=== PATIENT | male | born 1950 | race Caucasian/White ===

== ENCOUNTER 2017-10-30 02:09 | Emergency (ER) | payer MEDICARE ==
[2017-10-30] MEDS ORDERED: solu-MEDROL 125 MG IV ONE (02:22)
[2017-10-30] MEDS ORDERED: Sodium Chloride 0.9% 1000 ML 1,000 ML IV STA (02:22)
[2017-10-30] MEDS ORDERED: DUONEB 0.5-3 MG/3 ml Neb IH ONE ×2 (02:22→02:29)
--- NOTE | 2017-10-30 02:29 | ERPHSYRPT ---
- History of Present Illness Time Seen by Provider: 10/30/17 02:25 Source: patient Physician History: 67-year-old white male arrives with complaint of shortness of breath cough productive of yellow sputum symptoms 2 days he has had no vomiting he has no chest pain he has not had a fever at home. Past medical history includes COPD emphysema asthma HIV, degenerative bone disease Past surgical history hernia repair Social history positive for tobacco use Timing/Duration: day(s) (3 days) Severity of Dyspnea-Max: moderate Severity of Dyspnea-Current: moderate Possible Cause: occasional episodes Associated Symptoms: constant, cough, wheezing, productive cough (yellow sputum) , No intermittent, No anxiety, No chest pain/discomfort, No edema, No fever, No insomnia, No loss of appetite, No lightheadedness, No weakness, No ankle swelling, No chills, No hemoptysis, No calf pain, No dizziness, No heaviness, No heart racing, No lightheadedness, No leg swelling, No muscle spasms feet, No muscle spasms hands, No painful breathing, No sweating, No tightness, No tingling face, No tingling hands International travel in last 2 weeks: No Allergies/Adverse Reactions: morphine Allergy (Verified 10/30/17 02:50) vancomycin Allergy (Verified 10/30/17 02:50) - Review of Systems Constitutional: No Fever, No Chills Eyes: No Symptoms Ears, Nose, & Throat: No Symptoms Respiratory: Cough, Dyspnea, Wheezing Cardiac: No Chest Pain, No Edema, No Syncope Abdominal/Gastrointestinal: No Abdominal Pain, No Nausea, No Vomiting, No Diarrhea Genitourinary Symptoms: No Dysuria Musculoskeletal: No Back Pain, No Neck Pain Skin: No Rash Neurological: No Dizziness, No Focal Weakness, No Sensory Changes Psychological: No Symptoms Endocrine: No Symptoms All Other Systems: Reviewed and Negative - Past Medical History Pertinent Past Medical History: Yes Cardiac History: No Pertinent History Respiratory History: Asthma, Bronchitis, COPD Musculoskeletal History: Other (degenerative bone disease) Other Medical History: HIV - Past Surgical History Past Surgical History: Yes Gastrointestinal: Hernia Repair - Nursing Vital Signs Nursing Vital Signs: Initial Vital Signs Temperature 99.7 F 10/30/17 02:14 Pulse Rate 79 10/30/17 02:14 Blood Pressure 157/92 10/30/17 02:14 O2 Sat by Pulse Oximetry 92 L 10/30/17 02:14 Pain Scale Pain Intensity 0 - Physical Exam General Appearance: mild distress Eye Exam: PERRL/EOMI Ears, Nose, Throat Exam: hearing grossly normal, normal ENT inspection, normal pharynx, No abnormal TM (R), No abnormal TM (L), No sinus pain/drainage, No hearing decreased, No nasal congestion, No pharyngeal erythema, No tonsillar exudate, No tonsillar swelling Neck Exam: normal inspection, non-tender, supple, full range of motion Respiratory Exam: diminished breath sounds, wheezing Cardiovascular/Chest Exam: normal heart sounds, regular rate/rhythm Abdominal/Gastrointestinal Exam: soft, No tenderness, No distention, No mass Extremity Exam: non-tender, normal range of motion, normal inspection, no calf tenderness, no pedal edema Peripheral Pulses Exam: dorsalis-pedis (R): 2+, dorsalis-pedis (L): 2+ Neurologic Exam: alert, oriented x 3, cooperative, precision instrument and tool maker II-XII nml as tested, sensation nml, No motor deficits Skin Exam: normal color, warm, No dry SpO2 Interpretation: normal (92%) - Course Nursing assessment & vital signs reviewed: Yes EKG Interpreted by Me: RATE (79 bpm), Sinus Rhythm, Other (EKG: Sinus rhythm 79 bpm moderate amount of artifact normal axis no acute ST or T wave changes noted) - Radiology Exams Chest X-ray Interpretation: Interpreted by me, Other (Emphasematous chest, no infiltrates, no pneumothorax) Ordered Tests: Active Orders 24 hr Category Date Time Status Page Makeup System Operator STAT Care 10/30/17 02:23 Active EKG-ER Only STAT Care 10/30/17 02:22 Active IV Insertion STAT Care 10/30/17 02:22 Active Pulse Oximetry (ED) STAT Care 10/30/17 02:22 Active CHEST 1 VIEW (PORTABLE) Stat Exams 10/30/17 02:23 Taken BLOOD CULTURE Stat Lab 10/30/17 02:30 Received CBC W DIFF Stat Lab 10/30/17 02:25 Completed CMP Stat Lab 10/30/17 02:25 Completed CULTURE,SPUTUM Stat Lab 10/30/17 03:15 Received Lactic Acid Stat Lab 10/30/17 02:29 Completed NT PRO BNP Stat Lab 10/30/17 02:25 Completed TROPONIN Q3H Lab 10/30/17 02:25 Completed TROPONIN Q3H Lab 10/30/17 05:30 Ordered TROPONIN Q3H Lab 10/30/17 08:30 Ordered TROPONIN Q3H Lab 10/30/17 11:30 Ordered TROPONIN Q3H Lab 10/30/17 14:30 Ordered VENOUS BLOOD GAS Stat Lab 10/30/17 02:29 Completed Respiratory Nebulizer STAT RT 10/30/17 02:25 Completed Respiratory Nebulizer STAT RT 10/30/17 03:21 Completed Medication Summary Discontinued Medications Generic Name Dose Route Start Last Admin Trade Name Stephen PRN Reason Stop Dose Admin Albuterol Sulfate 2.5 mg 10/30/17 03:20 10/30/17 03:40 Proventil 2.5 Mg/3 Ml Neb IH 10/30/17 03:21 2.5 mg STAT ONE Administration Albuterol Sulfate Confirm 10/30/17 03:39 Proventil 2.5 Mg/3 Ml Neb Administered 10/30/17 03:40 Dose 2.5 mg IH .STK-MED ONE Albuterol/Ipratropium 3 ml 10/30/17 02:22 10/30/17 02:44 Duoneb 0.5-3 Mg/3 Ml Neb IH 10/30/17 02:23 3 ml STAT ONE Administration Albuterol/Ipratropium Confirm 10/30/17 02:29 Duoneb 0.5-3 Mg/3 Ml Neb Administered 10/30/17 02:30 Dose 3 ml IH .STK-MED ONE Sodium Chloride 1,000 mls @ 999 mls/hr 10/30/17 02:22 10/30/17 02:43 Sodium Chloride 0.9% 1000 Ml IV 10/30/17 03:22 999 mls/hr .Q1H1M STA Administration Sodium Chloride Confirm 10/30/17 02:40 Sodium Chloride 0.9% 1000 Ml Administered 10/30/17 02:41 Dose 1,000 mls @ ud .ROUTE .STK-MED ONE Ceftriaxone Sodium/Dextrose 1 g in 50 mls @ 100 mls/hr 10/30/17 02:50 03:03 Rocephin 1 Gm-D5w 50 Ml Bag IV 10/30/17 03:19 100 mls/hr STAT STA Administration Ceftriaxone Sodium/Dextrose Confirm 10/30/17 03:01 Rocephin 1 Gm-D5w 50 Ml Bag Administered 10/30/17 03:02 Dose 1 g in 50 mls @ ud IV .STK-MED ONE Methylprednisolone Sodium Succinate 125 mg 10/30/17 02:22 10/30/17 02:44 Solu-Medrol 125 Mg IV 10/30/17 02:23 125 mg STAT ONE Administration Methylprednisolone Sodium Succinate Confirm 10/30/17 02:40 Solu-Medrol 125 Mg Administered 10/30/17 02:41 Dose 125 mg .ROUTE .STK-MED ONE Lab/Rad Data: Laboratory Result Diagrams 10/30/17 02:25 10/30/17 02:25 Laboratory Results 10/30/17 10/30/17 10/30/17 Range/Units 02:29 02:25 02:25 WBC (4.0-10.5) K/mm3 RBC (4.1-5.6) M/mm3 Hgb (12.5-18.0) gm/dl Hct (42-50) % MCV (78-100) fl MCH (26-32) pg MCHC (32-36) g/dl RDW (11.5-14.0) % Plt Count (150-450) K/mm3 MPV (6-9.5) fl Gran % (36.0-66.0) % Lymphocytes % (24.0-44.0) % Monocytes % (0.0-12.0) % Eosinophils % (0.00-5.0) % Basophils % (0.0-0.4) % Basophils # (0-0.4) VBG pH 7.42 (7.32-7.42) VBG pCO2 at Pat Temp 33 L (42-55) mm/Hg VBG pO2 at Pat Temp 30 (25-40) mm/Hg VBG HCO3 21.4 L (22-28) meq/L VBG O2 Sat (Rigo) 68.1 L (95-100) VBG Base Excess -2.3 L (-2.0-2.0) VBG Hemoglobin 14.0 VBG Carboxyhemoglobin 1.4 (0.0-6.9) % T HGB POC Potassium 4.3 (3.5-5.1) Sodium 130 L (137-145) mmol/L Potassium 4.1 (3.5-5.1) mmol/L Chloride 97 L (98-107) mmol/L Carbon Dioxide 20 L (22-30) mmol/L Anion Gap 17.2 H (5-15) MEQ/L BUN 24 H (9-20) mg/dL Creatinine 1.99 H (0.66-1.25) mg/dL Estimated GFR 36 ML/MIN Glucose 103 (74-106) mg/dL Lactic Acid 0.8 (0.4-2.0) Calcium 9.3 (8.4-10.2) mg/dL Total Bilirubin 0.50 (0.2-1.3) mg/dL AST 26 (17-59) U/L ALT 17 (0-50) U/L Alkaline Phosphatase 86 (38-126) U/L Troponin I < 0.012 (0.000-0.034) ng/mL NT-Pro-B Natriuret Pep 262 (0-900) pg/mL Serum Total Protein 7.8 (6.3-8.2) g/dL Albumin 4.5 (3.5-5.0) g/dL 10/30/17 Range/Units 02:25 WBC 7.5 (4.0-10.5) K/mm3 RBC 4.14 (4.1-5.6) M/mm3 Hgb 13.5 (12.5-18.0) gm/dl Hct 40.0 L (42-50) % MCV 96.6 (78-100) fl MCH 32.6 H (26-32) pg MCHC 33.8 (32-36) g/dl RDW 12.4 (11.5-14.0) % Plt Count 223 (150-450) K/mm3 MPV 9.7 H (6-9.5) fl Gran % 73.1 H (36.0-66.0) % Lymphocytes % 11.1 L (24.0-44.0) % Monocytes % 15.5 H (0.0-12.0) % Eosinophils % 0.0 (0.00-5.0) % Basophils % 0.3 (0.0-0.4) % Basophils # 0.02 (0-0.4) VBG pH (7.32-7.42) VBG pCO2 at Pat Temp (42-55) mm/Hg VBG pO2 at Pat Temp (25-40) mm/Hg VBG HCO3 (22-28) meq/L VBG O2 Sat (Rigo) (95-100) VBG Base Excess (-2.0-2.0) VBG Hemoglobin VBG Carboxyhemoglobin (0.0-6.9) % T HGB POC Potassium (3.5-5.1) Sodium (137-145) mmol/L Potassium (3.5-5.1) mmol/L Chloride (98-107) mmol/L Carbon Dioxide (22-30) mmol/L Anion Gap (5-15) MEQ/L BUN (9-20) mg/dL Creatinine (0.66-1.25) mg/dL Estimated GFR ML/MIN Glucose (74-106) mg/dL Lactic Acid (0.4-2.0) Calcium (8.4-10.2) mg/dL Total Bilirubin (0.2-1.3) mg/dL AST (17-59) U/L ALT (0-50) U/L Alkaline Phosphatase (38-126) U/L Troponin I (0.000-0.034) ng/mL NT-Pro-B Natriuret Pep (0-900) pg/mL Serum Total Protein (6.3-8.2) g/dL Albumin (3.5-5.0) g/dL - Progress Progress: improved Air Movement: fair Progress Note: 10/30/17 03:57 Is a 67-year-old white male with history of COPD, HIV arrives with complaint of cough productive of yellow sputum symptoms for 3 days he states he's been short of breath he denies any chest pain. Patient has been given 1 L of normal saline he's been given Solu-Medrol 125 mg IV he's been given Rocephin 1 g IV he's been given DuoNeb treatment albuterol treatment. Patient is feeling better patient's chest x-ray reveals emphysematous chest EKG normal sinus rhythm [address] or T wave changes are noted patient's venous gases show pH of 7.42 PCO2 is 33 white count is normal at 7.5 hemoglobin 13.5 hematocrit is 40.0 chemistry shows a sodium of 1:30 potassium 4.1 chloride 97 bicarbonate 90 BUN 24 creatinine 1.99 glucose 13 troponin is normal patient was satting 91-92% on room air he needs on this with 2 L He states he is feeling quite a bit better after above noted treatment will discontinue oxygen at this point if he continues to do well and sats remain in the 90s we'll consider discharge with prednisone and Zithromax. Patient's has an albuterol inhaler at home 10/30/17 04:25 Patient's oxygen saturations staying around 90. Patient did go down to 88 however when checked on him and he was moving his hands room to urinate. I offered to consider observation to the patient he really doesn't want to be admitted he states that he really was moving his hand around with the pulse ox sensor. Will plan to discharge - Departure Time of Disposition: 04:03 Departure Disposition: Home Clinical Impression: COPD with exacerbation Condition: Fair Critical Care Time: No Referrals: PRIMITIVO DING [Primary Care Provider] - Instructions: Chronic Obstructive Pulmonary Disease Additional Instructions: Return home. Zithromax and tapering dose of prednisone as directed. Stop smoking. Use your albuterol inhaler every 4 hours as directed by your physician as needed follow-up with your family doctor. Plenty of fluids. Return for acute distress or for severe symptoms. . Prescriptions: Azithromycin 250 mg [Zithromax 250 MG TABLET] 0 mg PO ZPACK #6 tablet
[2017-10-30] MEDS ORDERED: solu-MEDROL 125 MG ONE (02:40)
[2017-10-30] MEDS ORDERED: Sodium Chloride 0.9% 1000 ML 1,000 ML ONE (02:40)
[2017-10-30 02:41] LABS: Lactic Acid 0.8 (0.4-2.0); VBG BASE EXCESS -2.3 (-2.0-2.0); VBG CARBOXYHEMOGLOBIN 1.4 % T HGB (0.0-6.9); VBG HCO3- 21.4 meq/L (22-28); VBG O2 SATURATION 68.1 (95-100); VBG POTASSIUM 4.3 (3.5-5.1); VBG pH 7.42 (7.32-7.42)
[2017-10-30] MEDS ORDERED: ROCEPHIN 1 Gm-D5w 50 ml Bag** 1 G/50 ML IVPB IV STA (02:50)
[2017-10-30 02:52] LABS: BASOPHIL % 0.3 % (0.0-0.4); Basophil (Absolute #) 0.02 (0-0.4); Eosinophil (Absolute #) 0 (0-0.5); Granulocyte Absolute (ANC) 5.51 (1.4-6.9); Granulocytes % 73.1 % (36.0-66.0); Hemoglobin 13.5 gm/dl (12.5-18.0); Lymphocyte (Absolute #) 0.84 (1.0-4.6); Lymphocytes % 11.1 % (24.0-44.0); Mean Cell Volume 96.6 fl (78-100); Mean Corpuscular Hemoglobin 32.6 pg (26-32); Mean Corpuscular Hgb Concent. 33.8 g/dl (32-36); Mean Platelet Volume 9.7 fl (6-9.5); Monocyte (Absolute #) 1.17 (0.0-1.3); Monocytes % 15.5 % (0.0-12.0); Platelet Count 223 K/mm3 (150-450); Red Blood Count 4.14 M/mm3 (4.1-5.6); Red Cell Distribution Width 12.4 % (11.5-14.0); White Blood Count 7.5 K/mm3 (4.0-10.5)
[2017-10-30 02:59] LABS: ALBUMIN 4.5 g/dL (3.5-5.0); ANION GAP 17.2 MEQ/L (5-15); BILIRUBIN,TOTAL 0.5 mg/dL (0.2-1.3); Calcium 9.3 mg/dL (8.4-10.2); Creatinine 1 1.99 mg/dL (0.66-1.25); Potassium 4.1 mmol/L (3.5-5.1); Total Protein 7.8 g/dL (6.3-8.2)
[2017-10-30] MEDS ORDERED: ROCEPHIN 1 Gm-D5w 50 ml Bag** 1 G/50 ML IVPB IV ONE (03:01)
[2017-10-30] MEDS ORDERED: PROVENTIL 2.5 MG/3 ML NEB IH ONE ×2 (03:20→03:39)
[2017-10-30 03:54] VITALS: BP 144/81; PULSE 74; O2SAT 93
--- NOTE | 2017-10-30 08:47 | XRAY ---
Indication: Short of breath. Comparison: None Portable chest hyperinflated and clear with a few incidental calcified granulomas. Heart and mediastinal structures within normal limits. Bony thorax intact with minimal degenerative changes. Impression: Nonacute hyperinflated chest with chronic features.
== END 2017-10-30 04:53 | disposition home or self-care (01) ==
LOC: ED 02:09
DX: J44.1 Chronic obstructive pulmonary disease with (acute) exacerbation (principal)
CPT/HCPCS: 36000; 36415; 71045; 80053; 82805; 83605; 83880; 84484; 85025; 87040; 87070; 87077; 87186; 93005; 93041; 94640; 96360; 96365; 96368; 96374; 99284; J0696; J2930; A9270-GY

== ENCOUNTER 2018-07-21 19:01 | Emergency (ER) | payer MEDICARE ==
--- NOTE | 2018-07-21 19:55 | ERPHSYRPT ---
- History of Present Illness Time Seen by Provider: 07/21/18 19:25 Source: patient Exam Limitations: no limitations Physician History: 67 y/o white male presents with 2 day h/o left hip pain. patient is angry upset at my questioning him rapidly but a pt with severe allergy came into ED at time of this pts h&p. this pt did not want any questions. he just wanted a drink and something for pain. no injury. pts pain shoots down left buttock and leg. never had this before. Timing/Duration: day(s) (2) Quality: sharpness, stabbing Hip Pain Location: hip (L) Severity of Pain-Max: moderate Severity of Pain-Current: moderate Modifying Factors: Improves With: movement (hurts) Symptoms prior to fall: none Associated Symptoms: denies symptoms, No fatigue, No fever, No groin pain, No insomnia, No pain radiating to knees, No trouble walking Allergies/Adverse Reactions: morphine Allergy (Verified 10/30/17 02:50) vancomycin Allergy (Verified 10/30/17 02:50) - Review of Systems Constitutional: No Symptoms Eyes: No Symptoms Ears, Nose, & Throat: No Symptoms Respiratory: No Symptoms Cardiac: No Symptoms Abdominal/Gastrointestinal: No Symptoms Genitourinary Symptoms: No Symptoms Musculoskeletal: Other (left hip and left buttock pain with radiation to left lower leg) Skin: No Symptoms Neurological: No Symptoms Psychological: Anxiety Endocrine: No Symptoms Hematologic/Lymphatic: No Symptoms Immunological/Allergic: No Symptoms All Other Systems: Reviewed and Negative - Past Medical History Pertinent Past Medical History: Yes Neurological History: No Pertinent History ENT History: No Pertinent History Cardiac History: No Pertinent History Respiratory History: Asthma, Bronchitis, COPD Endocrine Medical History: No Pertinent History Musculoskeletal History: No Pertinent History, Other (degenerative bone disease) GI Medical History: No Pertinent History History: No Pertinent History Psycho-Social History: No Pertinent History Male Reproductive Disorders: No Pertinent History Other Medical History: HIV - Past Surgical History Past Surgical History: Yes Gastrointestinal: Hernia Repair Genitourinary: No Pertinent History Musculoskeletal: No Pertinent History Male Surgical History: No Pertinent History Other Surgical History: 4 hernia repairs - Social History Smoking Status: Former smoker Exposure to second hand smoke: Yes Drug Use: none Patient Lives Alone: No - Nursing Vital Signs Nursing Vital Signs: Initial Vital Signs Pulse Rate 66 12/11/18 19:52 Respiratory Rate 18 07/21/18 19:52 Blood Pressure 141/83 07/21/18 19:52 O2 Sat by Pulse Oximetry 96 07/21/18 19:52 Pain Scale Pain Intensity 10 - Physical Exam General Appearance: mild distress, alert, anxiety, other (angry) Eye Exam: PERRL/EOMI, eyes nml inspection Ears, Nose, Throat Exam: normal ENT inspection, moist mucous membranes Neck Exam: normal inspection, non-tender, supple, full range of motion Respiratory Exam: normal breath sounds, lungs clear, airway intact, No chest tenderness, No respiratory distress, No accessory muscle use, No rhonchi, No wheezing, No stridor Cardiovascular Exam: regular rate/rhythm Gastrointestinal Exam: soft, normal bowel sounds, No tenderness, No guarding, No rebound Rectal Exam: not done Back Exam: normal inspection, normal range of motion, muscle spasm (left hip/ buttock), No CVA tenderness, No vertebral tenderness Extremity Exam: normal inspection, normal range of motion, pelvis stable Neurologic Exam: alert, oriented x 3, cooperative, prick stitcher II-XII nml as tested Skin Exam: normal color, warm, dry Lymphatic Exam: No adenopathy SpO2 Interpretation: normal - Course Nursing assessment & vital signs reviewed: Yes Ordered Tests: Active Orders 24 hr Category Date Time Status IV Insertion STAT Care 07/21/18 19:59 Active HIP UNI (2V) INCL PEL IF DONE Stat Exams 07/21/18 19:59 Ordered Medication Summary Discontinued Medications Generic Name Dose Route Start Last Admin Trade Name Stephen PRN Reason Stop Dose Admin Lorazepam 2 mg 07/21/18 19:59 07/21/18 20:14 Ativan 2 Mg/1 Ml Vial IV 07/21/18 20:00 2 mg STAT ONE Administration Lorazepam Confirm 07/21/18 20:07 Ativan 2 Mg/1 Ml Vial Administered 07/21/18 20:08 Dose 2 mg .ROUTE .STK-MED ONE Methylprednisolone Sodium Succinate 125 mg 07/21/18 20:00 07/21/18 20:14 Solu-Medrol 125 Mg IV 07/21/18 20:01 125 mg STAT ONE Administration Methylprednisolone Sodium Succinate Confirm 07/21/18 20:07 Solu-Medrol 125 Mg Administered 07/21/18 20:08 Dose 125 mg .ROUTE .STK-MED ONE - Progress Progress: improved, pain not gone completely, re-examined Counseled pt/family regarding: diagnosis, need for follow-up, rad results - Departure Time of Disposition: 21:08 Departure Disposition: Home Clinical Impression: Left hip pain, Sciatica Condition: Stable Critical Care Time: No Referrals: QUAN ROTH, [employer]ILRO[employer] SIGNAL TECHNICIAN [Primary Care Provider] - Additional Instructions: take medications as prescribed. follow up with primary doctor for further management Prescriptions: Diazepam [Valium] 2 mg PO TID PRN #10 tablet MDD 3 PRN Reason: Muscle Spasms Prednisone 10 mg [Deltasone 10 mg] 10 mg PO TID #12 tablet
[2018-07-21] MEDS ORDERED: Ativan 2 MG/1 ML VIAL IV ONE (19:59)
[2018-07-21] MEDS ORDERED: solu-MEDROL 125 MG IV ONE (20:00)
[2018-07-21] MEDS ORDERED: solu-MEDROL 125 MG ONE (20:07)
[2018-07-21] MEDS ORDERED: Ativan 2 MG/1 ML VIAL ONE (20:07)
[2018-07-21 22:35] VITALS: BP 141/93; PULSE 72; O2SAT 93
--- NOTE | 2018-07-22 09:10 | XRAY ---
Indication: Left hip pain. No known injury. Comparison: None AP pelvis and 2 views of the left hip demonstrates bilateral pelvic mesh grafts and a few pelvic phleboliths. No other bony, articular, or soft tissue abnormalities.
== END 2018-07-21 22:54 | disposition home or self-care (01) ==
LOC: ED 19:01
DX: M25.552 Pain in left hip (principal); M54.32 Sciatica, left side
CPT/HCPCS: 36000; 73502; 96374; 99284; J2060; J2930

== ENCOUNTER 2023-01-06 20:29 | Emergency (ER) | payer MEDICARE ==
[2023-01-06] MEDS ORDERED: XYLOCAINE 1% HCL 20 ML MDV ONE (21:06)
[2023-01-06] MEDS ORDERED: Adacel Vial IM ONE ×2 (21:49→21:52)
[2023-01-06] MEDS ORDERED: KEFZOL 1 GM IM ONE (21:49)
[2023-01-06] MEDS ORDERED: NORCO 5/325 MG PO ONE (21:50)
--- NOTE | 2023-01-06 21:50 | ERPHSYRPT ---
- History of Present Illness Time Seen by Provider: 01/06/23 20:47 Source: patient Exam Limitations: no limitations Patient Subjective Stated Complaint: dog bite to left thumb Triage Nursing Assessment: pt came into the er via ambulance; pt is axo x3; c/o dog bite to left thumb; tip of left thumb is missing; heavy bleeding to left thumb; 90 % of left thumb nail is missing; strong left radial pulse; moderate bleeding present to left thumb; vitals wnl; skin PDW Physician History: 72-year-old left-handed dominant male with history of HIV on antiviral presented in the ER with chief complaint of left thumb dog bite. Patient has a dog in his home owned by his caregiver, unsure about vaccination status was trying to feed him and he bit. Has missing thumbnail and chunk of soft tissue with exposed bone with slow oozing of blood. Patient is not on blood thinner. Complaining of dull aching to sharp burning pain moderate intensity. Unsure about tetanus status. Timing/Duration: today Quality: painful Severity: moderate Location: hands Associated Symptoms: denies symptoms Allergies/Adverse Reactions: morphine Allergy (Verified 01/06/23 20:36) vancomycin Allergy (Verified 01/06/23 20:36) Home Medications: Amlodipine Besylate 10 mg PO DAILY 01/06/23 [History] Elviteg/Cob/Emtri/Tenof Alafen [Genvoya Tablet] 1 each PO DAILY 01/06/23 [History] Gabapentin 300 mg PO TID 01/06/23 [History] Labetalol HCl 100 mg [Trandate 100 MG] 100 mg PO DAILY 01/06/23 [History] Levothyroxine Sodium 25 Mcg [Synthroid 25 Mcg] 25 mcg PO DAILY 01/06/23 [History] Metoclopramide HCl [Reglan] 10 mg PO DAILY 01/06/23 [History] Mirabegron [Myrbetriq] 25 mg PO DAILY 01/06/23 [History] Omeprazole 40 mg PO DAILY 01/06/23 [History] Potassium Chloride [Klor-Con 10] 10 meq PO BID 01/06/23 [History] Sertraline HCl [Zoloft] 25 mg PO DAILY 01/06/23 [History] Sertraline HCl [Zoloft] 100 mg PO DAILY 01/06/23 [History] Spironolactone 25 mg [Aldactone 25 MG] 25 mg PO DAILY 01/06/23 [History] Tamsulosin HCl 0.4 mg [Flomax 0.4 MG] 0.4 mg PO DAILY 01/06/23 [History] Hx Tetanus, Diphtheria Vaccination/Date Given: No Hx Influenza Vaccination/Date Given: No Hx Pneumococcal Vaccination/Date Given: No Immunizations Up to Date: No Travel Risk - International Travel Have you traveled outside of the country in past 3 weeks: No - Coronavirus Screening Are you exhibiting any of the following symptoms?: No Close contact with a COVID-19 positive Pt in past 14-21 Days: No - Vaccine Status Have you recieved a Covid-19 vaccination: Yes 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 - Vaccination Dates Date of 2cond Vaccination (if applicable): 12/04/20 - Review of Systems Constitutional: No Symptoms Ears, Nose, & Throat: No Symptoms Respiratory: No Symptoms Cardiac: No Symptoms Musculoskeletal: Injury Skin: Skin Lesions Neurological: No Symptoms Endocrine: No Symptoms - Past Medical History Pertinent Past Medical History: Yes Neurological History: No Pertinent History ENT History: No Pertinent History Cardiac History: High Cholesterol, Hypertension Respiratory History: Asthma, Bronchitis, COPD, Emphysema Endocrine Medical History: No Pertinent History Musculoskeletal History: Arthritis GI Medical History: No Pertinent History History: No Pertinent History Psycho-Social History: No Pertinent History Male Reproductive Disorders: No Pertinent History Other Medical History: HIV - Past Surgical History Past Surgical History: Yes Gastrointestinal: Hernia Repair Genitourinary: No Pertinent History Musculoskeletal: No Pertinent History Male Surgical History: No Pertinent History Other Surgical History: 4 hernia repairs - Social History Smoking Status: Light tobacco smoker How long have you smoked: 1995 Exposure to second hand smoke: Yes Drug Use: none Patient Lives Alone: No - Nursing Vital Signs Nursing Vital Signs: Initial Vital Signs Temperature 96.9 F 01/06/23 20:44 Pulse Rate 65 01/06/23 20:44 Respiratory Rate 18 01/06/23 20:44 Blood Pressure 126/71 01/06/23 20:44 O2 Sat by Pulse Oximetry 93 L 01/06/23 20:44 Pain Scale Pain Intensity 3 - Physical Exam General Appearance: no apparent distress, alert Eye Exam: PERRL/EOMI Neck Exam: normal inspection, full range of motion Respiratory Exam: normal breath sounds, lungs clear Cardiovascular Exam: regular rate/rhythm, normal heart sounds Extremity Exam: normal range of motion, lacerations (Missing left thumb nail, exposed tuft bone with missing distal tissue. Slow oozing. Intact range of motion at distal interphalangeal joint.), inflammation, swelling, tenderness Neurologic Exam: alert, oriented x 3 Skin Exam: normal color SpO2 Interpretation: normal SpO2: 93 O2 Delivery: Room Air - Progress Progress: improved Progress Note: 01/06/23 21:52 72-year-old left-handed dominant male with history of HIV on antiviral presented in the ER with chief complaint of left thumb dog bite. Patient has a dog in his home owned by his caregiver, unsure about vaccination status was trying to feed him and he bit. Has missing thumbnail and chunk of soft tissue with exposed bone with slow oozing of blood. Patient is not on blood thinner. Complaining of dull aching to sharp burning pain moderate intensity. Unsure about tetanus status. Is given digital ring block with lidocaine 1%. Patient feeling better on reevaluation. Thoroughly cleaned. Patient does not have enough tissue to make a flap to close it. I have obtained x-rays which did not show any obvious fracture but has distal tuft missing. I have discussed with Dr. Daniel orthopedic surgeon with [facility], reviewed history, recommended dose of cefazolin here, Keflex to go home, nonadherent dressing and outpatient follow-up [facility] later this week. Discussed plan of care with patient which she understands and agrees with it. [employer] enforcement has informed and dog bite form is filled, faxed to [employer]. Discussed with Dr.: Other (Dr. Daniel orthopedic surgeon) Counseled pt/family regarding: diagnosis, need for follow-up, rad results Medical Desision Making - Discussion of managment Care discussed with:: specialist (Dr. 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 Follow-up with orthopedic surgeon for reevaluation tomorrow. Take pain medications as needed, return to ER for intractable pain, swelling, inability to move thumb. [facility]: Bharath Fink MD Contact us [address] [place] [id number] Prescriptions: Hydrocodone/Acetaminophen [Hydrocodone-Acetamin 5-325 mg] 1 tab PO Q6HPRN PRN 3 Days #10 tablet MDD 4 PRN Reason: Pain Hydrocodone/Acetaminophen [Hydrocodone-Acetamin 5-325 mg] 1 tab PO Q6HPRN PRN 3 Days #10 tablet MDD 4 PRN Reason: Pain Cephalexin Mh 500 mg [Keflex 500 mg] 500 mg PO QID 10 Days #40 cap
[2023-01-06] MEDS ORDERED: NORCO 5/325 MG ONE (21:51)
[2023-01-06] MEDS ORDERED: KEFZOL 1 GM ONE (21:51)
[2023-01-06 22:06] VITALS: BP 148/82; PULSE 54
[2023-01-06 22:07] VITALS: O2SAT 93
--- NOTE | 2023-01-07 08:33 | XRAY ---
Indication: Dog bite. Comparison: None 3 view left thumb demonstrates distal tuft soft tissue amputation with tiny underlying cortical fracture. Elsewhere osteopenia and mild degenerative changes visualized IP/MCP/1st MCP multangular articulations.
== END 2023-01-06 22:16 | disposition home or self-care (01) ==
LOC: ED 20:29
DX: S68.522A Partial traumatic transphalangeal amputation of left thumb, initial encounter (principal); W54.0XXA Bitten by dog, initial encounter; Y93.K9 Activity, other involving animal care; B20 Human immunodeficiency virus [HIV] disease; Z79.899 Other long term (current) drug therapy; E78.5 Hyperlipidemia, unspecified; I10 Essential (primary) hypertension; Z72.0 Tobacco use; Z23 Encounter for immunization; Z79.891 Long term (current) use of opiate analgesic
CPT/HCPCS: 73140; 90471; 90715; 96372; 99283; J0690; A9270-GY

== ENCOUNTER 2025-07-15 11:25 | Emergency (ER) | payer MEDICARE, OTHER ==
[2025-07-15 11:35] VITALS: TEMP 98.2
--- NOTE | 2025-07-15 11:57 | ERPHSYRPT ---
- History of Present Illness Time Seen by Provider: 07/15/25 11:40 Source: patient Exam Limitations: no limitations Patient Subjective Stated Complaint: Pt states "I fell in my room and hurt my back." Triage Nursing Assessment: Pt presented alert and oriented X 3, skin pwd. pt has pain and tenderness noted to mid rib just to the right of the spine. Pt winces and spasms when pressed. Physician History: 74-year-old male history of hypertension hyperlipidemia asthma bronchitis COPD emphysema former smoker presents to our ED for evaluation of right posterior thoracic rib pain. Patient states he was outdoors then walked into his house. When he closed the door the interior of his house was completely dark. Per patient "I stepped on something" and fell backwards. Patient reports his back hit the frame of his bed. Patient now has pain at the left posterolateral mid thorax. No BHT or LOC no neck pain. Cervical spine cleared clinically. The fall was not associated with any neuro or cardiovascular symptomology. No chest pain or shortness of breath. No nausea vomiting or diaphoresis. No numbness tingling or weakness. Patient's only complaint is point tenderness at the area of trauma. He otherwise feels well. Patient declined pain medication. He voices no other complaints or concerns at this time. Portions of this note were created with voice recognition technology. There may be grammatical, spelling, punctuation or sound alike errors Timing/Duration: today Severity: moderate Modifying Factors: Improves With: nothing Associated Symptoms: denies symptoms Allergies/Adverse Reactions: morphine Allergy (Verified 01/06/23 20:36) vancomycin Allergy (Verified 01/06/23 20:36) Home Medications: Amlodipine Besylate 10 mg PO DAILY 01/06/23 [History] Elviteg/Cob/Emtri/Tenof Alafen [Genvoya Tablet] 1 each PO DAILY 01/06/23 [History] Gabapentin 300 mg PO TID 01/06/23 [History] Labetalol HCl 100 mg [Trandate 100 MG] 100 mg PO DAILY 01/06/23 [History] Levothyroxine Sodium 25 Mcg [Synthroid 25 Mcg] 25 mcg PO DAILY 01/06/23 [History] Metoclopramide HCl [Reglan] 10 mg PO DAILY 01/06/23 [History] Mirabegron [Myrbetriq] 25 mg PO DAILY 01/06/23 [History] Omeprazole 40 mg PO DAILY 01/06/23 [History] Potassium Chloride [Klor-Con 10] 10 meq PO BID 01/06/23 [History] Sertraline HCl [Zoloft] 25 mg PO DAILY 01/06/23 [History] Sertraline HCl [Zoloft] 100 mg PO DAILY 01/06/23 [History] Spironolactone 25 mg [Aldactone 25 MG] 25 mg PO DAILY 01/06/23 [History] Tamsulosin HCl 0.4 mg [Flomax 0.4 MG] 0.4 mg PO DAILY 01/06/23 [History] Hx Tetanus, Diphtheria Vaccination/Date Given: No Hx Influenza Vaccination/Date Given: No Hx Pneumococcal Vaccination/Date Given: No Immunizations Up to Date: No Travel Risk - International Travel Have you traveled outside of the country in past 3 weeks: No - Emerging Infectious Disease Are you exhibiting symptoms associated with any current EIDs: No - Review of Systems All Other Systems: Reviewed and Negative - Past Medical History Pertinent Past Medical History: Yes Neurological History: No Pertinent History ENT History: No Pertinent History Cardiac History: High Cholesterol, Hypertension Respiratory History: Asthma, Bronchitis, COPD, Emphysema Endocrine Medical History: No Pertinent History Musculoskeletal History: Arthritis GI Medical History: No Pertinent History History: No Pertinent History Psycho-Social History: No Pertinent History Male Reproductive Disorders: No Pertinent History Other Medical History: HIV - Past Surgical History Past Surgical History: Yes Gastrointestinal: Hernia Repair Genitourinary: No Pertinent History Musculoskeletal: No Pertinent History Male Surgical History: No Pertinent History Other Surgical History: 4 hernia repairs - Social History Smoking Status: Former smoker How long have you smoked: 1995 Exposure to second hand smoke: Yes Drug Use: none - Social Determinants of Health Will the patient participate in the screening: Declined to provide - Nursing Vital Signs Nursing Vital Signs: Initial Vital Signs Temperature 98.2 F 07/15/25 11:31 Pulse Rate 49 L 07/15/25 11:31 Respiratory Rate 22 07/15/25 11:31 Blood Pressure 142/75 07/15/25 11:31 O2 Sat by Pulse Oximetry 98 07/15/25 11:31 Pain Scale Pain Intensity 0 - Physical Exam General Appearance: no apparent distress, alert Eye Exam: PERRL/EOMI, eyes nml inspection Ears, Nose, Throat Exam: normal ENT inspection, moist mucous membranes Neck Exam: normal inspection, full range of motion Respiratory Exam: normal breath sounds, lungs clear, airway intact, other (Point tenderness to palpation at right posterior lateral thorax. Patient states the pain radiates towards the front of his chest upon palpation.), No respiratory distress Cardiovascular Exam: regular rate/rhythm, normal heart sounds, normal peripheral pulses Gastrointestinal/Abdomen Exam: soft, normal bowel sounds, No tenderness, No mass Back Exam: normal inspection, normal range of motion, No CVA tenderness, No vertebral tenderness Extremity Exam: normal inspection, normal range of motion, pelvis stable Neurologic Exam: alert, oriented x 3, cooperative, normal mood/affect, sensation nml, No motor deficits Skin Exam: normal color, warm, dry, other (Soft tissue crepitation posterolateral rib area), No rash Lymphatic Exam: No adenopathy SpO2 Interpretation: normal SpO2: 98 O2 Delivery: Room Air Procedures - Chest Tube Time of Procedure: 14:00 Timeout: Performed Chest Tube Location: Right Size of Somali Tube (cm): 20 Chest Tube Procedure: betadine prep, sterile drapes applied, sterile dressing applied, vaseline gauze Anesthesia: 1% Lidocaine Volume Anesthetic (ccs): 5 Kaur of Air [place]: Yes Tube Drainage: air Tube Sutured to Skin: Yes Post Procedure CXR?: Yes Progress: Patient tolerated procedure well. No intra postprocedural complications. Follow-up chest x-ray reveals resolution of pneumothorax. Drainage system tidaling with breathing. - Procedural Sedation Indication: other (Pneumothorax) Preparation: consent signed Sedation Parenteral: Propofol (Diprovan), Dilaudid Response during procedure: moderate sedation Post-Procedure Response: return to baseline mental status, vital signs stable Progress: Patient tolerated procedure well. No intra postprocedural complications. - Course Nursing assessment & vital signs reviewed: Yes EKG Interpreted by Me: RATE (50), Sinus Rhythm, NORMAL AXIS, NORMAL INTERVALS, NORMAL QRS - CT Exams Chest CT Interpretation: Tele-radiologist Report (CT chest shows a 25% pneumothorax with associated subcutaneous emphysema. Ribs 4 through 6 fracture) Ordered Tests: Active Orders 24 hr Category Date Time Status EKG-ER Only STAT Care 07/15/25 11:58 Completed IV Insertion STAT Care 07/15/25 12:19 Active CHEST 2 VIEWS (PA AND LAT) Stat Exams 07/15/25 14:15 Completed CHEST WITHOUT CONTRAST [CT] Stat Exams 07/15/25 11:39 Completed CBC W DIFF Stat Lab 07/15/25 12:15 Completed CMP Stat Lab 07/15/25 12:15 Completed PROTIME WITH INR Stat Lab 07/15/25 12:15 Completed PTT Stat Lab 07/15/25 12:15 Completed TROPONIN Q4H Lab 07/15/25 12:15 Completed TROPONIN Q4H Lab 07/15/25 16:42 Completed TROPONIN Q4H Lab 07/15/25 20:30 Ordered Medication Summary Generic Name Dose Route Start Last Admin Trade Name Freq PRN Reason Stop Dose Admin Sodium Chloride 1,000 mls @ 50 mls/hr 07/15/25 12:30 07/15/25 12:38 Sodium Chloride 0.9% 1000 Ml IV 08/14/25 12:29 50 mls/hr .Q20H ABRIL Administration Propofol 100 mls @ 1.965 mls/hr 07/15/25 15:54 07/15/25 15:58 Propofol 1000 Mg/100 Ml Bottle IV 08/14/25 15:53 5 mcg/kg/min .Q24H PRN 1.965 mls/hr SEDATION FOR VENT Administration Protocol 5 MCG/KG/MIN Discontinued Medications Generic Name Dose Route Start Last Admin Trade Name Freq PRN Reason Stop Dose Admin Cefazolin Sodium Confirm 07/15/25 13:13 Cefazolin Sodium 1 Gm Vial Administered 07/15/25 13:14 Dose 1 g .ROUTE .STK-MED ONE Furosemide 40 mg 07/15/25 15:26 07/15/25 15:53 Furosemide 40 Mg Tablet PO 07/15/25 15:27 Not Given STAT ONE Hydromorphone HCl 1 mg 07/15/25 13:37 07/15/25 13:41 Hydromorphone 1 Mg/1ml Inj IV 07/15/25 13:38 1 mg STAT ONE Administration Hydromorphone HCl Confirm 07/15/25 13:40 Hydromorphone 1 Mg/1ml Inj Administered 07/15/25 13:41 Dose 1 mg .ROUTE .STK-MED ONE Hydromorphone HCl 1 mg 07/15/25 17:02 07/15/25 17:05 Hydromorphone 1 Mg/1ml Inj IV 07/15/25 17:03 1 mg STAT ONE Administration Hydromorphone HCl Confirm 07/15/25 17:04 Hydromorphone 1 Mg/1ml Inj Administered 07/15/25 17:05 Dose 1 mg .ROUTE .STK-MED ONE Hydromorphone HCl 1 mg 07/15/25 19:23 Hydromorphone 1 Mg/1ml Inj IV 07/15/25 19:24 STAT ONE Cefazolin Sodium 1 g/ Sodium 100 mls @ 200 mls/hr 07/15/25 13:11 07/15/25 14:23 Chloride IV 07/15/25 13:40 Infused ONCALLTOOR ONE Infusion Sodium Chloride Confirm 07/15/25 13:16 Sodium Chloride 0.9% Administered 07/15/25 13:17 Dose 100 mls @ ud .ROUTE .STK-MED ONE Propofol Confirm 07/15/25 13:54 Propofol 1000 Mg/100 Ml Bottle Administered 07/15/25 13:55 Dose 100 mls @ ud IV .STK-MED ONE Morphine Sulfate Confirm 07/15/25 14:03 Morphine Sulfate 10 Mg/Ml Injection Administered 07/15/25 14:04 Dose 10 mg .ROUTE .STK-MED ONE Morphine Sulfate 4 mg 07/15/25 15:55 07/15/25 15:58 Morphine Sulfate 4 Mg/Ml Injection IV 07/15/25 15:56 4 mg STAT ONE Administration Ondansetron HCl 4 mg 07/15/25 12:19 07/15/25 12:38 Ondansetron Hcl 4 Mg/2 Ml Vial IV 07/15/25 12:20 4 mg STAT ONE Administration Ondansetron HCl Confirm 07/15/25 12:37 Ondansetron Hcl 4 Mg/2 Ml Vial Administered 07/15/25 12:38 Dose 4 mg .ROUTE .STK-MED ONE Lab/Rad Data: Laboratory Result Diagrams 07/15/25 12:15 07/15/25 12:15 Laboratory Results 07/15/25 07/15/25 07/15/25 Range/Units 16:42 12:15 12:15 WBC (4.23-9.07) x10^3/uL RBC (4.63-6.08) x10^6/uL Hgb (13.7-17.5) g/dL Hct (40.1-51.0) % MCV (79.0-92.2) fL MCH (25.7-32.2) pg MCHC (32.3-36.5) g/dL RDW (11.6-14.4) % Plt Count (163-337) x10^3/uL MPV (9.4-12.4) fL Gran % (34.0-67.9) % Immature Gran % (Auto) (0.001-0.429) % Nucleat RBC Rel Count (0.00-0.2) % Eos # (Auto) (0.04-0.54) x10^3/uL Immature Gran # (Auto) (0.001-0.031) x10^3u/L Absolute Lymphs (auto) (1.32-3.57) x10^3/uL Absolute Monos (auto) (0.30-0.82) x10^3/uL Absolute Nucleated RBC (0.00-0.012) x10^3u/L Lymphocytes % (21.8-53.1) % Monocytes % (5.3-12.2) % Eosinophils % (0.8-7.0) % Basophils % (0.2-1.2) % Absolute Granulocytes (1.78-5.38) x10^3/uL Basophils # (0.01-0.08) x10^3/uL PT 10.0 (9.4-12.5) SECONDS INR 0.89 (0.8-3.0) APTT 24.6 L (25.1-36.5) SECONDS Sodium (135-145) mmol/L Potassium (3.5-5.1) mmol/L Chloride (98-107) mmol/L Carbon Dioxide (22-30) mmol/L Anion Gap (5-15) MEQ/L BUN (9-20) mg/dL Creatinine (0.66-1.25) mg/dL Estimated GFR ML/MIN Glucose (74-106) mg/dL Calcium (8.4-10.2) mg/dL Total Bilirubin (0.2-1.3) mg/dL AST (17-59) U/L ALT (0-50) U/L Alkaline Phosphatase (38-126) U/L Troponin I < 0.012 < 0.012 (0.000-0.033) ng/mL Serum Total Protein (6.3-8.2) g/dL Albumin (3.5-5.0) g/dL 07/15/25 07/15/25 Range/Units 12:15 12:15 WBC 9.4 H (4.23-9.07) x10^3/uL RBC 4.36 L (4.63-6.08) x10^6/uL Hgb 13.3 L (13.7-17.5) g/dL Hct 41.8 (40.1-51.0) % MCV 95.9 H (79.0-92.2) fL MCH 30.5 (25.7-32.2) pg MCHC 31.8 L (32.3-36.5) g/dL RDW 13.8 (11.6-14.4) % Plt Count 250 (163-337) x10^3/uL MPV 9.2 L (9.4-12.4) fL Gran % 73.7 H (34.0-67.9) % Immature Gran % (Auto) 0.8 H (0.001-0.429) % Nucleat RBC Rel Count 0.0 (0.00-0.2) % Eos # (Auto) 0.23 (0.04-0.54) x10^3/uL Immature Gran # (Auto) 0.08 H (0.001-0.031) x10^3u/L Absolute Lymphs (auto) 1.48 (1.32-3.57) x10^3/uL Absolute Monos (auto) 0.65 (0.30-0.82) x10^3/uL Absolute Nucleated RBC 0.00 (0.00-0.012) x10^3u/L Lymphocytes % 15.7 L (21.8-53.1) % Monocytes % 6.9 (5.3-12.2) % Eosinophils % 2.4 (0.8-7.0) % Basophils % 0.5 (0.2-1.2) % Absolute Granulocytes 6.93 H (1.78-5.38) x10^3/uL Basophils # 0.05 (0.01-0.08) x10^3/uL PT (9.4-12.5) SECONDS INR (0.8-3.0) APTT (25.1-36.5) SECONDS Sodium 136 (135-145) mmol/L Potassium 5.3 H (3.5-5.1) mmol/L Chloride 104 (98-107) mmol/L Carbon Dioxide 23 (22-30) mmol/L Anion Gap 14.1 (5-15) MEQ/L BUN 23 H (9-20) mg/dL Creatinine 1.59 H (0.66-1.25) mg/dL Estimated GFR 45.6 ML/MIN Glucose 153 H (74-106) mg/dL Calcium 9.0 (8.4-10.2) mg/dL Total Bilirubin 0.40 (0.2-1.3) mg/dL AST 21 (17-59) U/L ALT 15 (0-50) U/L Alkaline Phosphatase 133 H (38-126) U/L Troponin I (0.000-0.033) ng/mL Serum Total Protein 7.2 (6.3-8.2) g/dL Albumin 4.2 (3.5-5.0) g/dL - Progress Progress: improved Progress Note: Dates discussed with general surgeon Dr. Christopher who agrees with plan of care to place a chest tube. He advises placing patient on 20 cm of water suction over waterseal. I spoke to Dr. Christopher at 1258 PM 07/15/25 12:[address] Elizabeth Flores at approximately 3:15 PM. She feels the chest tube seems to be appropriately placed. She would be willing to keep him here at [facility] or alternatively [facility] where she is on staff. Patient will be transferred as a trauma. There is concern with possible pulmonary contusion with subsequent desaturation. Plan of care discussed with patient's caregiver. Given patient's significant lung history including COPD bronchitis asthma and emphysema we will transfer to [facility] for higher level of care. 07/15/25 15:[address] Schroeder hospitalist at [facility] at 4:09 PM. He accepts admission. 07/15/25 16:15 Critical care time greater than 194 minutes. Patient presented with right sided posterior lateral thoracic pain. CT scan revealed 25% pneumothorax. Emergent thoracostomy tube indicated. Plan of care confirmed with general surgery. Patient was in significant pain. Soft tissue crepitation palpated on exam. Immediate intervention indicated to prevent further deterioration. Chest tube placed under procedural sedation using propofol. 07/15/25 19:28 History obtained from patient and caregiver at bedside. Differential diagnosis is pneumothorax, rib fracture, chest wall contusion, intercostal muscle strain Dr. Baires independently reviewed and interpreted chest x-ray. This was a preliminary read. Formal read completed. 74-year-old male history of hypertension hyperlipidemia asthma bronchitis COPD emphysema former smoker presents to our ED for evaluation of right posterior thoracic rib pain. Patient states he was outdoors then walked into his house. When he closed the door the interior of his house was completely dark. Per patient "I stepped on something" and fell backwards. Patient reports his back hit the frame of his bed. Patient now has pain at the left posterolateral mid thorax. No BHT or LOC no neck pain. Cervical spine cleared clinically. Physical exam reveals tenderness palpation right posterior lateral thorax with superimposed soft tissue crepitation. CT scan revealed a 25% pneumothorax. Work ostomy completed. Patient tolerated procedure well. No intra postprocedure complications. After discussion with patient's caregiver to be transferred to [facility]. Patient received 1 g of Ancef. Opponent negative x 2. EG sinus rhythm Complexity of problems addressed is moderate acute complicated. Critical care time is greater than 194 minutes. Complex of data reviewed and analyzed is extensive. Test ordered test reviewed results analyzed and correlated clinically with history and physical exam. Management discussed with Dr. Christopher, Dr. Flores and , [facility] hospitalist. Risk of complication and or risk of morbidity/mortality of patient management is high. Vital stable. Time spent to transfer patient is approximately 30 minutes. Plan of care established for shared decision making. No social determinants of health present to impede follow-up. Portions of this note were created with voice recognition technology. There may be grammatical, spelling, punctuation or sound alike errors 07/15/25 19:37 Counseled pt/family regarding: lab results, diagnosis, rad results - Departure Departure Disposition: Transfer Clinical Impression: Rib fractures, Fall, Pneumothorax, Subcutaneous emphysema, Chronic renal insufficiency Condition: Stable Critical Care Time: Yes Critical Care Time(excluding separately billable procedures): Critical > 194 mins Referrals: ROBERT ROLLINS [facility] [Primary Care Provider, UNKNOWN] - Follow up/PCP as directed
--- NOTE | 2025-07-15 12:35 | XRAY ---
Indication: Right chest pain following fall. Short of breath. Multiple contiguous axial images obtained through the chest without contrast. Comparison: None Right lung demonstrates approximately 25% pneumothorax. No hemothorax. Right lower lobe demonstrates mild cylindrical bronchiectasis and peripheral interstitial alveolar opacities. A few incidental tiny right midlung calcified granulomas. Left lung inflated and clear. Heart not enlarged with scattered coronary calcifications. Aorta minimally arteriosclerotic without aneurysm. Large chunky subcarinal and smaller chunky mediastinal/bilateral hilar calcified nodes. No pathologic mediastinal lymphadenopathy. Small hiatal hernia. Bony thorax demonstrates minimally displaced posterior and lateral right 4-6 acute rib fractures with adjacent mild subcutaneous emphysema. Elsewhere minimal degenerative changes throughout spine and mild elongated dextroscoliosis. Limited upper abdomen demonstrates minimal pneumobilia. Impression: 1. Acute right 4-6 rib fractures with small right pneumothorax and right chest wall subcutaneous emphysema. 2. Mild right lower lobe interstitial alveolar opacities. Rule out pneumonia/pneumonitis. 3. Chronic findings including right lower lobe bronchiectasis arteriosclerotic disease, hiatal hernia, degenerative spondylosis, and old granulomatous disease. Comment: Telephone report was given to ordering clinician Dr. Baires at 12:28 hours on July 15, 2025.
[2025-07-15 12:37] LABS: BASOPHIL % 0.5 % (0.2-1.2); Basophil (Absolute #) 0.05 x10^3/uL (0.01-0.08); Eosinophil (Absolute #) 0.23 x10^3/uL (0.04-0.54); Hematocrit 41.8 % (40.1-51.0); Hemoglobin 13.3 g/dL (13.7-17.5); IMMATURE GRAN # 0.08 x10^3u/L (0.001-0.031); IMMATURE GRAN % 0.8 % (0.001-0.429); Lymphocyte (Absolute #) 1.48 x10^3/uL (1.32-3.57); Mean Corpuscular Hemoglobin 30.5 pg (25.7-32.2); Mean Corpuscular Hgb Concent. 31.8 g/dL (32.3-36.5); Monocyte (Absolute #) 0.65 x10^3/uL (0.30-0.82); NUCLEATED RBC # 0.00 x10^3u/L (0.00-0.012); NUCLEATED RBC % 0.0 % (0.00-0.2); Platelet Count 250 x10^3/uL (163-337); Red Blood Count 4.36 x10^6/uL (4.63-6.08); White Blood Count 9.4 x10^3/uL (4.23-9.07)
[2025-07-15] MEDS ORDERED: Zofran 4 MG/2 ML VIAL ONE (12:37)
[2025-07-15] MEDS: Zofran 4 MG/2 ML VIAL IV ONE (12:38)
[2025-07-15 12:51] LABS: Calcium 9.0 mg/dL (8.4-10.2); Carbon Dioxide 23.0 mmol/L (22-30); Creatinine 1 1.59 mg/dL (0.66-1.25); EST GLOMERULAR FILTRATION RATE 45.6 ML/MIN; Glucose 153.0 mg/dL (74-106); Potassium 5.3 mmol/L (3.5-5.1); SGOT/AST 21.0 U/L (17-59); SGPT/ALT 15.0 U/L (0-50); Total Protein 7.2 g/dL (6.3-8.2)
[2025-07-15 12:58] LABS: INR 0.89 (0.8-3.0); PROTIME 10.0 SECONDS (9.4-12.5); PTT 24.6 SECONDS (25.1-36.5)
[2025-07-15] MEDS ORDERED: KEFZOL 1 GM ONE (13:13)
[2025-07-15] MEDS: KEFZOL IV ONE (13:16)
[2025-07-15] MEDS: SODIUM CHLORIDE 0.9% IV ONE (13:16)
[2025-07-15] MEDS ORDERED: Hydromorphone 1 mg/ml Injection ONE ×4 (13:40→21:07)
[2025-07-15] MEDS: Hydromorphone 1 mg/ml Injection IV ONE ×4 (13:41→21:08)
[2025-07-15] MEDS ORDERED: Propofol 1000 mg/100 ml Bottle 100 ML IV ONE (13:54)
[2025-07-15] MEDS ORDERED: MORPHINE SULFATE 10 MG/ML ONE (14:03)
--- NOTE | 2025-07-15 14:57 | XRAY ---
Indication: Chest tube placement. Comparison: October 30, 2017 AP/cross-table lateral chest demonstrates new right chest tube tip projecting over right hilum on AP view. On lateral, tube tip is anterior possibly extrathoracic. No right pneumothorax but there is moderate right chest subcutaneous emphysema. Remaining heart and left lung unremarkable. Bony thorax demonstrates new posterolateral right 4/6 rib fractures. Comment: Telephone report was given to ordering clinician Dr. Baires at 1440 hours on July 15, 2025.
[2025-07-15] MEDS: Lasix 40 MG PO ONE (15:53)
[2025-07-15] MEDS: MORPHINE SULFATE 4 MG INJ IV ONE (15:58)
[2025-07-15] MEDS: Propofol 1000 mg/100 ml Bottle 100 ML IV PRN (15:58)
[2025-07-15 21:35] VITALS: BP 161/91; PULSE 62; RESP 13; O2SAT 94
== END 2025-07-15 21:35 | disposition short-term general hospital (02) ==
LOC: ED 11:25
DX: S22.41XA Multiple fractures of ribs, right side, initial encounter for closed fracture (principal); S27.0XXA Traumatic pneumothorax, initial encounter; T79.7XXA Traumatic subcutaneous emphysema, initial encounter; W01.0XXA Fall on same level from slipping, tripping and stumbling without subsequent striking against object, initial encounter; I12.9 Hypertensive chronic kidney disease with stage 1 through stage 4 chronic kidney disease, or unspecified chronic kidney disease; N18.9 Chronic kidney disease, unspecified; Z79.899 Other long term (current) drug therapy